=== PATIENT | female | born 1995 | race Two or more races ===

== ENCOUNTER 2023-09-13 12:13 | Emergency (ER) | payer OTHER ==
[2023-09-13 12:23] VITALS: BP 103/72; PULSE 106; RESP 18; BMI 25.6
[2023-09-13] MEDS ORDERED: ACETAMINOPHEN 500 MG TABLET (FP) ONE (13:03)
[2023-09-13] MEDS: ACETAMINOPHEN 500 MG TABLET (FP) PO ONE (13:04)
[2023-09-13 14:13] VITALS: TEMP 98.6
== END 2023-09-13 14:40 | disposition home or self-care (01) ==
LOC: JERFT 12:13
DX: R50.9 Fever, unspecified (principal); R05.9 Cough, unspecified; R09.81 Nasal congestion; J10.1 Influenza due to other identified influenza virus with other respiratory manifestations; Z20.822 Contact with and (suspected) exposure to COVID-19
CPT/HCPCS: 0241U-QW; 71046-TC-FY; 99284-25

== ENCOUNTER 2024-10-27 21:13 | Emergency (ER) | payer OTHER ==
[2024-10-27 21:20] VITALS: BP 129/77; PULSE 86; RESP 18; TEMP 98.2; BMI 26.2
[2024-10-27 22:00] LABS: EPI CELLS 5 /uL (0-25.1); HCG,QUALITATIVE URINE Negative; HYALINE CASTS 0 /uL (0-3.1); PH,URINE 5.5 (5.0-8.0); URINE APPEARANCE CLEAR; URINE BACTERIA 45 /uL (0-1359); URINE BILIRUBIN NEGATIVE (NEGATIVE); URINE COLOR YELLOW; URINE GLUCOSE (UA) NEGATIVE (NEGATIVE); URINE KETONE NEGATIVE (NEGATIVE); URINE LEUK ESTERASE TRACE (NEGATIVE); URINE NITRITE NEGATIVE (NEGATIVE); URINE PROTEIN NEGATIVE (NEGATIVE); URINE RBC 2 /uL (0-23.9); URINE UROBILINOGEN 0.2 mg/dL (0.2-1.0); URINE WBC 5 /uL (0-25.8)
[2024-10-27] MEDS ORDERED: ACETAMINOPHEN 325 MG TABLET (FP) ONE (22:01)
[2024-10-27] MEDS: ACETAMINOPHEN 325 MG TABLET (FP) PO ONE (22:18)
[2024-10-27 22:21] LABS: ABSOLUTE IMMATURE GRANULOCYTES 0.01 x10^3/uL (0.0-0.031); BASOPHILS # 0.08 x10^3/uL (0.01-0.08); EOSINOPHIL % 1.8 % (0.7-5.8); EOSINOPHILS # 0.15 x10^3/uL (0.04-0.36); HEMATOCRIT 34.5 % (34.1-44.9); HEMOGLOBIN 10.5 g/dL (11.2-15.7); MCHC 30.4 g/dl (32.2-35.5); MEAN CELL VOLUME 76.8 fl (79.4-94.8); MONOCYTE # 0.44 x10^3/uL (0.24-0.86); MONOCYTE % 5.3 % (4.7-12.5); PLATELET COUNT 224 x10^3/uL (182-369); RDW 15.5 % (12.1-16.5)
[2024-10-27 22:39] LABS: INR 1.16 (0.83-1.09); PROTHROMBIN TIME (PATIENT) 12.8 SEC (9.7-13.0)
[2024-10-27 22:41] LABS: ACTIVATED PTT 28.2 SECONDS (25.2-36.5)
[2024-10-27 22:47] LABS: CHLORIDE 106 mmol/L (98-107); POTASSIUM 4.2 mmol/L (3.5-5.1); SODIUM 138 mmol/L (136-145)
[2024-10-27 22:49] LABS: ALBUMIN 3.6 g/dl (3.4-5.0); ANION GAP 6 mmol/L (4-13); BLOOD UREA NITROGEN 16.6 mg/dL (7-18); CALCIUM 9.2 mg/dL (8.5-10.1); CO2 25 mmol/L (21-32)
[2024-10-27 22:50] LABS: GLUCOSE,RANDOM 81 mg/dL (74-106)
[2024-10-27 22:52] LABS: SGPT/ALT 18 U/L (13-61)
[2024-10-27 22:53] LABS: CREATININE 0.8 mg/dL (0.55-1.3); SGOT/AST 18 U/L (15-37)
[2024-10-27 22:54] LABS: BILIRUBIN,TOTAL 0.4 mg/dL (0.2-1); TOT PROT 7.2 g/dl (6.4-8.2)
[2024-10-27 22:55] LABS: ALK PHOS 69 U/L (45-117)
[2024-10-27 23:43] LABS: HCV DIAGNOSTIC IN-HOUSE W/RFLX NON-REACTIVE (NONREACTIVE); HIV INTERPRETATION NEGATIVE (NEGATIVE)
[2024-10-28] MEDS: KETOROLAC TROMETHAMINE 15 MG/ML VIAL IVPUSH ONE (00:38)
[2024-10-28] MEDS ORDERED: KETOROLAC TROMETHAMINE 30 MG/1 ML VIAL ONE (00:42)
[2024-10-28] MEDS: KETOROLAC TROMETHAMINE 30 MG/1 ML VIAL IVPUSH ONE (00:45)
== END 2024-10-28 00:50 | disposition home or self-care (01) ==
LOC: JER 21:13
PROC: 3E0333Z Introduction of Anti-inflammatory into Peripheral Vein, Percutaneous Approach (ICD-10-PCS; principal; 2024-10-27)
DX: R10.31 Right lower quadrant pain (principal); R68.83 Chills (without fever)
CPT/HCPCS: 36415; 74177-TC; 76830-TC; 80053; 81003; 84703; 85025; 85610; 85730; 86140; 86803; 86850; 86900; 86901; 87086; 87389; 99285-25